=== PATIENT | female | born 1985 | race Caucasian/White ===

== ENCOUNTER 2017-06-04 17:00 | Emergency (ER) | payer SELFPAY ==
[~2017-06-04] VITALS: Ht 162.6 cm; Wt 127.0 kg
[2017-06-04 18:19] LABS: URINE BILIRUBIN - DIPSTICK NEGATIVE (NEGATIVE); URINE BLOOD DIPSTICK NEGATIVE (NEGATIVE); URINE COLOR YELLOW; URINE GLUCOSE - DIPSTICK NEGATIVE (NEGATIVE); URINE KETONE NEGATIVE (NEGATIVE); URINE LEUK ESTERASE NEGATIVE (NEGATIVE); URINE PH 5.5 (4.5-8.0); URINE PROTEIN - DIPSTICK NEGATIVE (NEG-TRACE); URINE SPECIFIC GRAVITY >=1.030; URINE UROBILINOGEN - DIPSTICK 0.2 E.U./dL (0.2)
[2017-06-04 18:23] LABS: HEMATOCRIT 39.2 % (37.0-47.0); HEMOGLOBIN 13.1 g/dl (12.0-16.0); IMMATURE GRANULOCYTES 0.2 % (0.0-1.0); MEAN CELL VOLUME 82.7 fL CALC (80.0-100.0); MEAN CORPUSCULAR HGB 27.6 pG CALC (26.0-32.0); MEAN CORPUSCULAR HGB CONC 33.4 g/L CALC (32.0-36.0); NEUT# 6.19 thou/uL (2.00-7.15); RED BLOOD COUNT 4.74 mill/uL (4.20-5.60); RED CELL DISTRI WIDTH 13.7 % (11.5-15.5)
[2017-06-04 18:51] LABS: ALBUMIN 3.7 g/dL (3.2-5.0); ALKALINE PHOSPHATASE 82 u/l (38-126); AMYLASE 44 u/l (30-110); ANION GAP 13 (6-22 (CALC)); BILIRUBIN, TOTAL 0.6 mg/dL (0.0-1.4); BUN 7 mg/dL (7-17); BUN/CREATININE RATIO 10 (12-20 (CALC)); CALCIUM 8.9 mg/dL (8.4-10.2); CARBON DIOXIDE 24 mmol/l (22-30); CHLORIDE 109 mmol/l (95-108); CREATININE 0.7 mg/dL (0.5-1.0); GFR > 60 ML/MIN (>=60 (CALC)); GFR FOR AFR.AMER. > 60 ML/MIN (>=60 (CALC)); GLUCOSE 91 mg/dL (65-105); LIPASE 151 u/l (23-300); POTASSIUM 4.2 mmol/l (3.5-5.1); SGOT/AST 37 u/l (14-36); SGPT/ALT 29 u/l (9-52); SODIUM 141 mmol/l (137-146); TOTAL PROTEIN 6.4 g/dL (6.3-8.2)
[2017-06-04 20:12] LABS: URINE CLARITY CLOUDY; URINE NITRITE - DIPSTICK POSITIVE (Negative)
[2017-06-04 20:27] LABS: URINE BACTERIA MANY hpf; URINE SQUAMOUS EPITHELIAL CELL FEW EPI/hpf (0-FEW)
[2017-06-05] MEDS ORDERED: CIPROFLOXACN500 MG PO (04:05)
[2017-06-05] MEDS ORDERED: IBUPROFEN600 MG PO (04:09)
[2017-06-05 04:30] VITALS: BP 119/68
== END 2017-06-05 04:30 | disposition home or self-care (01) | DRG 690 ==
LOC: ED 17:00
PROVIDERS: Emergency Medicine
DX: N39.0 Urinary tract infection, site not specified (principal); B96.20 Unspecified Escherichia coli [E. coli] as the cause of diseases classified elsewhere

== ENCOUNTER 2017-11-06 17:16 | Emergency (ER) | payer BC ==
[~2017-11-06] VITALS: Ht 162.6 cm; Wt 127.0 kg
[~2017-11-06 17:16] MED LIST: CIPROFLOXACN500 MG PO; IBUPROFEN600 MG PO
[2017-11-06] MEDS ORDERED: MOTRIN400 MG PO (18:22)
[2017-11-06 18:55] VITALS: BP 131/77
== END 2017-11-06 18:40 | disposition home or self-care (01) | DRG 563 ==
LOC: ED 17:16
PROC: 2W3MX1Z Immobilization of Left Lower Extremity using Splint (ICD-10-PCS; principal; 2017-11-06)
DX: S93.402A Sprain of unspecified ligament of left ankle, initial encounter (principal); M25.472 Effusion, left ankle; M25.572 Pain in left ankle and joints of left foot; M77.32 Calcaneal spur, left foot; W16.512A Jumping or diving into swimming pool striking water surface causing other injury, initial encounter; Y93.11 Activity, swimming; Y92.007 Garden or yard of unspecified non-institutional (private) residence as the place of occurrence of the external cause

== ENCOUNTER 2017-11-27 14:02 | Emergency (ER) | payer BC ==
[~2017-11-27] VITALS: Ht 162.6 cm; Wt 127.2 kg
[~2017-11-27 14:02] MED LIST changes: +MOTRIN400 MG PO
[2017-11-27 16:15] VITALS: BP 139/74
== END 2017-11-27 16:15 | disposition home or self-care (01) | DRG 950 ==
LOC: ED 14:02
DX: S93.402D Sprain of unspecified ligament of left ankle, subsequent encounter (principal); M25.472 Effusion, left ankle; M25.572 Pain in left ankle and joints of left foot; R50.9 Fever, unspecified; X58.XXXD Exposure to other specified factors, subsequent encounter; Y93.01 Activity, walking, marching and hiking

== ENCOUNTER 2017-12-13 16:12 | Emergency (ER) | payer BC ==
[~2017-12-13] VITALS: Ht 162.6 cm; Wt 131.4 kg
[2017-12-13] MEDS ORDERED: BACTRIM DS1 TAB PO (16:28)
[2017-12-13] MEDS ORDERED: ZOFRAN4 MG PO (16:28)
[2017-12-13] MEDS ORDERED: TRAMADOL HYDROC50 MG PO (16:29)
[2017-12-13] MEDS ORDERED: PROTONIX40 M2 PO (16:30)
[2017-12-13 17:37] LABS: HEMATOCRIT 43.4 % (37.0-47.0); HEMOGLOBIN 14.4 g/dl (12.0-16.0); IMMATURE GRANULOCYTES 0.5 % (0.0-1.0); MEAN CELL VOLUME 83.9 fL CALC (80.0-100.0); MEAN CORPUSCULAR HGB 27.9 pG CALC (26.0-32.0); MEAN CORPUSCULAR HGB CONC 33.2 g/L CALC (32.0-36.0); NEUT# 6.61 thou/uL (2.00-7.15); RED BLOOD COUNT 5.17 mill/uL (4.20-5.60); RED CELL DISTRI WIDTH 13.7 % (11.5-15.5)
[2017-12-13 17:38] LABS: URINE BILIRUBIN - DIPSTICK NEGATIVE (NEGATIVE); URINE BLOOD DIPSTICK NEGATIVE (NEGATIVE); URINE COLOR YELLOW; URINE GLUCOSE - DIPSTICK NEGATIVE (NEGATIVE); URINE KETONE NEGATIVE (NEGATIVE); URINE LEUK ESTERASE NEGATIVE (NEGATIVE); URINE NITRITE - DIPSTICK NEGATIVE (Negative); URINE PH 5.5 (4.5-8.0); URINE PROTEIN - DIPSTICK NEGATIVE (NEG-TRACE); URINE UROBILINOGEN - DIPSTICK 0.2 E.U./dL (0.2)
[2017-12-13 17:42] LABS: URINE CLARITY CLEAR
[2017-12-13 17:54] LABS: ALBUMIN 3.9 g/dL (3.2-5.0); ALKALINE PHOSPHATASE 86 u/l (38-126); AMYLASE < 30 u/l (30-110); ANION GAP 12 (6-22 (CALC)); BILIRUBIN, TOTAL 0.6 mg/dL (0.0-1.4); BUN 14 mg/dL (7-17); BUN/CREATININE RATIO 15 (12-20 (CALC)); CARBON DIOXIDE 25 mmol/l (22-30); CHLORIDE 106 mmol/l (95-108); CREATININE 0.9 mg/dL (0.5-1.0); GFR > 60 ML/MIN (>=60 (CALC)); GFR FOR AFR.AMER. > 60 ML/MIN (>=60 (CALC)); LIPASE 124 u/l (23-300); POTASSIUM 4.1 mmol/l (3.5-5.1); SGOT/AST 39 u/l (14-36); SGPT/ALT 62 u/l (9-52); SODIUM 139 mmol/l (137-146); TOTAL PROTEIN 6.9 g/dL (6.3-8.2)
[2017-12-13] MEDS ORDERED: REGLAN10 MG PO (19:26)
[2017-12-13 19:29] VITALS: BP 118/78
== END 2017-12-13 19:36 | disposition home or self-care (01) | DRG 392 ==
LOC: ED 16:12
DX: R10.33 Periumbilical pain (principal); K29.70 Gastritis, unspecified, without bleeding; R50.9 Fever, unspecified; R11.0 Nausea
CPT/HCPCS: Q9967

== ENCOUNTER 2018-04-12 02:30 | Emergency (ER) | payer OTHER, BC ==
[~2018-04-12] VITALS: Ht 162.6 cm; Wt 131.8 kg
[~2018-04-12 02:30] MED LIST changes: +BACTRIM DS1 TAB PO; +PROTONIX40 M2 PO; +REGLAN10 MG PO; +TRAMADOL HYDROC50 MG PO; +ZOFRAN4 MG PO
[2018-04-12] MEDS ORDERED: NAPROSYN500 MG PO (03:41)
[2018-04-12 04:10] VITALS: BP 137/74
== END 2018-04-12 04:10 | disposition home or self-care (01) | DRG 563 ==
LOC: ED 02:30
DX: S83.92XA Sprain of unspecified site of left knee, initial encounter (principal); W10.1XXA Fall (on)(from) sidewalk curb, initial encounter; Y93.89 Activity, other specified; Y92.89 Other specified places as the place of occurrence of the external cause; Y99.0 Civilian activity done for income or pay

== ENCOUNTER 2019-06-17 15:50 | Emergency (ER) | payer BC ==
[~2019-06-17] VITALS: Ht 162.6 cm; Wt 140.0 kg
[~2019-06-17 15:50] MED LIST changes: +NAPROSYN500 MG PO
[2019-06-17] MEDS ORDERED: PHENTERMINE H37.5 M1 PO (18:27)
[2019-06-17] MEDS ORDERED: ULTRAM50 M1 PO (19:00)
[2019-06-17] MEDS ORDERED: FLEXERIL PO (19:00)
[2019-06-17 19:12] VITALS: BP 138/80
== END 2019-06-17 19:12 | disposition home or self-care (01) | DRG 563 ==
LOC: ED 15:50
DX: S43.401A Unspecified sprain of right shoulder joint, initial encounter (principal); M62.838 Other muscle spasm; X58.XXXA Exposure to other specified factors, initial encounter

== ENCOUNTER 2019-08-13 | Emergency (ER) | payer BC ==
[~2019-08-13] MED LIST changes: +FLEXERIL PO; +PHENTERMINE H37.5 M1 PO; +ULTRAM50 M1 PO
[2019-08-13] MEDS ORDERED: FERR SULFATE325 MG PO (08:21)
[2019-08-13] MEDS ORDERED: WELLBUTRIN150 M1 PO (08:22)
[2019-08-13] MEDS ORDERED: CODEINE/GUAIFEN1 SOL PO (08:33)
[2019-08-13] MEDS ORDERED: ZITHROMAX250 MG PO (08:33)
== END 2019-08-13 08:45 | disposition home or self-care (01) | DRG 153 ==
DX: H66.92 Otitis media, unspecified, left ear (principal); J40 Bronchitis, not specified as acute or chronic

== ENCOUNTER 2019-08-18 | Emergency (ER) | payer OTHER, BC ==
[~2019-08-18] MED LIST changes: +CODEINE/GUAIFEN1 SOL PO; +FERR SULFATE325 MG PO; +WELLBUTRIN150 M1 PO; +ZITHROMAX250 MG PO
[2019-08-18 08:26] LABS: IMMATURE GRANULOCYTES 0.7 % (0.0-5.0); MEAN CELL VOLUME 82.8 fL CALC (80.0-100.0); MEAN CORPUSCULAR HGB 27.6 pG CALC (26.0-32.0); MEAN CORPUSCULAR HGB CONC 33.3 g/L CALC (32.0-36.0); NEUT# 7.52 thou/uL (2.00-7.15); RED BLOOD COUNT 4.71 mill/uL (4.20-5.60); RED CELL DISTRI WIDTH 13.2 % (11.5-15.5)
[2019-08-18 08:35] LABS: ALBUMIN 3.9 g/dL (3.2-5.0); ALKALINE PHOSPHATASE 77 u/l (38-126); ANION GAP 13 (6-22 (CALC)); BILIRUBIN, TOTAL 0.7 mg/dL (0.0-1.4); BUN 11 mg/dL (7-17); BUN/CREATININE RATIO 15 (12-20 (CALC)); CARBON DIOXIDE 26 mmol/l (22-30); CHLORIDE 104 mmol/l (95-108); CREATININE 0.7 mg/dL (0.5-1.0); ETHYL ALCOHOL 0 mg/dl (0-30); GFR > 60 ML/MIN (>=60 (CALC)); GFR FOR AFR.AMER. > 60 ML/MIN (>=60 (CALC)); POTASSIUM 4.3 mmol/l (3.5-5.1); SGOT/AST 35 u/l (14-36); SODIUM 139 mmol/l (137-146); TOTAL PROTEIN 6.8 g/dL (6.3-8.2)
[2019-08-18 08:39] LABS: ACT PARTIAL THROMBO TIME 25.6 SECONDS (20.0-32.5); PROTHROMBIN TIME 10.4 SECONDS (9.0-12.5)
[2019-08-18] MEDS ORDERED: ULTRAM50 M1 PO (11:13)
== END 2019-08-18 11:50 | disposition home or self-care (01) | DRG 605 ==
PROVIDERS: Emergency Medicine
DX: S80.01XA Contusion of right knee, initial encounter (principal); S93.401A Sprain of unspecified ligament of right ankle, initial encounter; V28.4XXA Motorcycle driver injured in noncollision transport accident in traffic accident, initial encounter

== ENCOUNTER 2019-10-07 | Emergency (ER) | payer BC ==
[2019-10-07] MEDS ORDERED: TRAMADOL HCL50 MG PO (10:06)
== END 2019-10-07 10:10 | disposition home or self-care (01) | DRG 563 ==
DX: S83.511A Sprain of anterior cruciate ligament of right knee, initial encounter (principal); V89.2XXA Person injured in unspecified motor-vehicle accident, traffic, initial encounter